=== PATIENT | male | born 1975 | race Caucasian/White ===

== ENCOUNTER 2019-10-16 16:18 | Emergency (ER) | payer MEDICAID, OTHER ==
[2019-10-16 16:26] VITALS: BP 131/76
--- NOTE | 2019-10-16 16:50 | ED Physician Documentation ---
History of Present Illness - Stated complaint Stated Complaint: M - Chief complaint Chief Complaint: Abd Pain - History obtained from History obtained from: Patient - History of Present Illness Timing: How many weeks ago (Several weeks) Pain level max: 6 Pain level now: 3 - Additonal information Additional information: 43-year-old male presents to the emergency department with left inguinal swelling for the past several weeks. States it is gradually become larger. It is intermittently painful. No vomiting. No constipation. No abdominal pain. Better with lying down, worse with standing. Review of Systems Constitutional: denies: Fever, Chills Nose: denies: Rhinorrhea / runny nose, Congestion Respiratory: denies: Cough GI: denies: Nausea, Vomiting, Diarrhea Skin: denies: Rash Musculoskeletal: denies: Neck pain, Extremity pain Neurologic: denies: Headache PD PAST MEDICAL HISTORY - Past Medical History Past Medical History: No - Past Surgical History Past Surgical History: Yes - Present Medications Home Medications: Ambulatory Orders Medication Instructions Recorded Confirmed Ibuprofen [Motrin] 800 mg PO Q8H PRN #30 tablet 10/16/19 - Allergies Allergies/Adverse Reactions: Allergies Allergy/AdvReac Type Severity Reaction Status Date / Time No Known Drug Allergies Allergy Verified 10/16/19 16:26 - Social History Does the pt smoke?: Yes Smoking Status: Current every day smoker Does the pt drink ETOH?: Yes Does the pt have substance abuse?: No - Immunizations Immunizations are current?: Yes - POLST Patient has POLST: No PD ED PE NORMAL - Vitals Vital signs reviewed: Yes - General General: Alert and oriented X 3, No acute distress, Well developed/nourished - HEENT HEENT: PERRL, Moist mucous membranes - Neck Neck: Supple, no meningeal sign - Cardiac Cardiac: RRR - Respiratory Respiratory: No respiratory distress, Clear bilaterally - Abdomen Abdomen: Soft, Non tender, Non distended - Male Male : Other (Left-sided inguinal hernia, easily reducible.) - Derm Derm: Warm and dry - Neuro Neuro: Alert and oriented X 3 - Psych Psych: Normal mood, Normal affect Results - Vitals Vitals: Vital Signs - 24 hr 10/16/19 16:22 Temperature 36.7 C Heart Rate 78 Respiratory 18 Rate Blood Pressure 131/76 H O2 Saturation 95 Oxygen O2 Source Room air PD MEDICAL DECISION MAKING - ED course Complexity details: considered differential, d/w patient ED course: Patient with a left inguinal hernia. Easily reducible. Not incarcerated. We will have him follow-up with general surgery for further care. Patient counseled regarding signs and symptoms for which I believe and urgent re- evaluation would be necessary. Patient with good understanding of and agreement to plan and is comfortable going home at this time This document was made in part using voice recognition software. While efforts are made to proofread this document, sound alike and grammatical errors may occur. Departure - Departure Disposition: 01 Home, Self Care Clinical Impression: Left inguinal hernia Condition: Good Instructions: ED Hernia Inguinal Follow-Up: Oumar Doll MD [Provider Admit Priv/Credential] - Prescriptions: Ibuprofen [Motrin] 800 mg PO Q8H PRN #30 tablet PRN Reason: PAIN &/OR FEVER Comments: you can try a hernia truss underwear and this may help your pain as well. Follow-up with general surgery for repair. Return if you worsen.
== END 2019-10-16 17:01 | disposition home or self-care (01) ==
LOC: ED 16:18
DX: K40.90 Unilateral inguinal hernia, without obstruction or gangrene, not specified as recurrent (principal); F17.200 Nicotine dependence, unspecified, uncomplicated
CPT/HCPCS: 99282; 99284

== ENCOUNTER 2019-11-08 00:48 | Day surgery (SDC) | payer MEDICAID ==
--- NOTE | 2019-11-08 00:50 | ED Physician Documentation ---
PD HPI MALE - Stated complaint Stated Complaint: MALE /PX - History obtained from History obtained from: Patient (Patient is a 43-year-old male who is otherwise healthy presents with left inguinal pain he was diagnosed recently with a left inguinal hernia he does have follow-up with general surgery however due to the pandemic he is been unable to schedule an elective surgery for his hernia repaired this morning he woke up and has been unable to reduce his hernia he has had progressively worsening pain and now with nausea last bowel movement was yesterday is able to urinate denies any history of previous abdominal or pelvic surgeries.Last meal was approximately 6 PM yesterday. Patient denies taking any chronic medications.) PD PAST MEDICAL HISTORY - Past Medical History Cardiovascular: None Respiratory: None Neuro: None Endocrine/Autoimmune: None GI: None : None HEENT: None Psych: None Musculoskeletal: None Derm: None - Past Surgical History Past Surgical History: Yes - Present Medications Home Medications: Ambulatory Orders Medication Instructions Recorded Confirmed Ibuprofen [Motrin] 800 mg PO Q8H PRN #30 tablet 10/16/19 Docusate Sodium 100 mg PO BID #60 capsule 11/08/19 Ibuprofen 800 mg PO TID #60 tablet 11/08/19 oxyCODONE [Roxicodone] 5 mg PO Q6H PRN #40 tablet 11/08/19 - Allergies Allergies/Adverse Reactions: Allergies Allergy/AdvReac Type Severity Reaction Status Date / Time No Known Drug Allergies Allergy Verified 11/08/19 00:59 - Social History Does the pt smoke?: Yes Smoking Status: Current every day smoker Does the pt drink ETOH?: Yes Does the pt have substance abuse?: No - Immunizations Immunizations are current?: Yes - POLST Patient has POLST: No PD ED PE NORMAL - Vitals Vital signs reviewed: Yes - General General: Alert and oriented X 3, No acute distress, Well developed/nourished - HEENT HEENT: Atraumatic, PERRL, Moist mucous membranes - Neck Neck: Supple, no meningeal sign, No JVD - Cardiac Cardiac: RRR, No murmur, Strong equal pulses - Respiratory Respiratory: No respiratory distress, Clear bilaterally - Abdomen Abdomen: Normal bowel sounds, Soft, Non tender, Non distended, No organomegaly - Male Male : Other (Mass in the left femoral/inguinal region, its diffusely tender to palpation unable to reduce on direct manipulation. Patient was placed in Trendelenburg position to attempt to reduce still unsuccessful with reduction testicles are descended bilaterally there is no masses in the testicles no blood at the urethral meatus.) - Back Back: No CVA TTP, No spinal TTP - Derm Derm: Normal color, Warm and dry - Extremities Extremities: No deformity, No calf tenderness / cord - Neuro Neuro: Alert and oriented X 3, regional service manager 2-12 intact, No motor deficit, No sensory deficit, Normal speech - Psych Psych: Normal mood, Normal affect Results - Vitals Vitals: Vital Signs - 24 hr 11/08/19 11/08/19 11/08/19 00:50 02:14 02:50 Temperature 36.6 C Heart Rate 76 68 58 L Respiratory 20 16 18 Rate Blood Pressure 142/78 H 139/81 H 139/81 H O2 Saturation 97 96 98 11/08/19 11/08/19 11/08/19 03:18 06:38 07:47 Temperature 36.4 C L Heart Rate 70 60 56 L Respiratory 16 18 18 Rate Blood Pressure 137/81 H 151/95 H 127/73 O2 Saturation 98 97 97 11/08/19 11/08/19 11/08/19 09:00 09:52 11:00 Temperature Heart Rate 47 L 49 L 62 Respiratory 18 18 18 Rate Blood Pressure 129/82 H 129/82 H 111/71 O2 Saturation 97 96 96 11/08/19 11/08/19 11/08/19 12:00 14:09 16:15 Temperature 36 C L Heart Rate 54 L 82 64 Respiratory 18 16 16 Rate Blood Pressure 153/100 H 128/91 H 112/64 O2 Saturation 97 98 100 11/08/19 11/08/19 11/08/19 16:20 16:25 16:30 Temperature 36.4 C L 36.4 C L 36.5 C Heart Rate 67 66 63 Respiratory 18 18 15 Rate Blood Pressure 105/63 118/74 109/64 O2 Saturation 100 100 99 11/08/19 11/08/19 11/08/19 16:35 16:40 16:45 Temperature 36.7 C 36.4 C L 36.5 C Heart Rate 76 64 61 Respiratory 20 16 15 Rate Blood Pressure 119/76 115/64 116/71 O2 Saturation 97 98 97 11/08/19 11/08/19 11/08/19 17:00 17:32 17:52 Temperature 36.2 C L 36.2 C L 36.0 C L Heart Rate 65 59 L 64 Respiratory 17 16 16 Rate Blood Pressure 118/76 122/68 132/73 H O2 Saturation 98 99 98 Oxygen O2 Source Room air - Labs Labs: Laboratory Tests 11/08/19 11/08/19 11/08/19 01:16 01:16 01:16 WBC 8.1 RBC 4.89 Hgb 15.6 Hct 44.6 MCV 91.2 MCH 31.9 H MCHC 35.0 RDW 12.8 Plt Count 290 MPV 11.0 Neut # (Auto) 4.7 Lymph # (Auto) 2.3 [place] # (Auto) 0.8 Eos # (Auto) 0.3 Baso # (Auto) 0.0 Absolute Nucleated RBC 0.00 Nucleated RBC % 0.0 PT 10.8 INR 0.9 APTT 28.3 Sodium 137 Potassium 3.6 Chloride 101 Carbon Dioxide 26 Anion Gap 10.0 BUN 13 Creatinine 0.8 Estimated GFR (MDRD) 105 Glucose 100 Lactic Acid Calcium 8.8 Total Bilirubin 0.3 AST 19 ALT 26 Alkaline Phosphatase 55 Total Creatine Kinase 109 Total Protein 7.0 Albumin 4.3 Globulin 2.7 Albumin/Globulin Ratio 1.6 Lipase 31 Urine Color Urine Clarity Urine pH Ur Specific [place] Urine Protein Urine Glucose (UA) Urine Ketones Urine Occult Blood Urine Nitrite Urine Bilirubin Urine Urobilinogen Ur Leukocyte Esterase Ur Microscopic Review Urine Culture Comments 11/08/19 11/08/19 01:16 05:38 WBC RBC Hgb Hct MCV MCH MCHC RDW Plt Count MPV Neut # (Auto) Lymph # (Auto) [place] # (Auto) Eos # (Auto) Baso # (Auto) Absolute Nucleated RBC Nucleated RBC % PT INR APTT Sodium Potassium Chloride Carbon Dioxide Anion Gap BUN Creatinine Estimated GFR (MDRD) Glucose Lactic Acid 1.2 Calcium Total Bilirubin AST ALT Alkaline Phosphatase Total Creatine Kinase Total Protein Albumin Globulin Albumin/Globulin Ratio Lipase Urine Color YELLOW Urine Clarity CLEAR Urine pH 6.0 Ur Specific [place] 1.010 Urine Protein NEGATIVE Urine Glucose (UA) NEGATIVE Urine Ketones NEGATIVE Urine Occult Blood NEGATIVE Urine Nitrite NEGATIVE Urine Bilirubin NEGATIVE Urine Urobilinogen 0.2 (NORMAL) Ur Leukocyte Esterase NEGATIVE Ur Microscopic Review NOT INDICATED Urine Culture Comments NOT INDICATED PD MEDICAL DECISION MAKING - ED course Complexity details: re-evaluated patient (Made multiple attempts to reduce the h ernia including gentle pressure, ice, Trendelenburg ultrasound and CT scan showed an incarcerated hernia, lactate is normal no white count he is afebrile no signs of strangulation.At this point will consult general surgery for surgical intervention.), considered differential (Left-sided hernia most likely a indirect inguinal hernia unable to reduce at this point concern would be for incarceration no signs of strangulation currently. Ultrasound will be ordered as well as IV access will send screening labs continue the patient in Trendelenburg position and observe. ), d/w patient - Consults Consults: Consulted (name) (Dr. Long. ), Discussed case with (dr. Long, general surgeon), Request admissions consultant evaluate patient (04:37 case d/w surgeon. will evaluate for surgical correction.) Departure - Departure Disposition: ED Transfer to [facility] Clinical Impression: Incarcerated left inguinal hernia Condition: Stable Discharge Date/Time: 11/08/19 14:10
[2019-11-08] MEDS ORDERED: HYDROmorphone 1 MG/ML SYRINGE IVP STA ×3 (01:02→06:38)
[2019-11-08] MEDS ORDERED: ONDANSETRON 4 MG/2 ML VIAL IVP STA (01:02)
[2019-11-08] MEDS ORDERED: SODIUM CHLORIDE 0.9% 1,000 ML IV ONE (01:02)
[2019-11-08 01:19] LABS: BASOPHILS % (AUTO) 0.4 %; EOSINOPHILS # (AUTO) 0.3 10^3/uL (0.0-0.7); EOSINOPHILS % (AUTO) 4.1 %; HGB - HEMOGLOBIN 15.6 g/dL (14.0-18.0); LYMPHOCYTES # (AUTO) 2.3 10^3/uL (1.5-3.5); LYMPHOCYTES % (AUTO) 27.9 %; MEAN CORPUSCULAR HEMOGLOBIN 31.9 pg (27.0-31.0); MEAN CORPUSCULAR VOLUME 91.2 fL (80.0-94.0); MONOCYTES # (AUTO) 0.8 10^3/uL (0.0-1.0); MONOCYTES % (AUTO) 10.1 %; NEUTROPHILS # (AUTO) 4.7 10^3/uL (1.5-6.6); NEUTROPHILS % (AUTO) 57.3 %; PLT - PLATELET COUNT 290 10^3/uL (130-450); RED BLOOD COUNT 4.89 10^6/uL (4.70-6.10); RED CELL DISTRIBUTION WIDTH 12.8 % (12.0-15.0); WHITE BLOOD COUNT 8.1 x10^3/uL (4.8-10.8)
[2019-11-08 01:24] LABS: INR 0.9 (0.8-1.2); PT - PROTHROMBIN TIME 10.8 secs (9.9-12.6)
[2019-11-08 01:31] LABS: ALBUMIN 4.3 g/dL (3.2-5.5); ALBUMIN/GLOBULIN RATIO 1.6 (1.0-2.2); BILIRUBIN,TOTAL 0.3 mg/dL (0.2-1.0); CALCIUM 8.8 mg/dL (8.5-10.3); CREATININE 0.8 mg/dL (0.6-1.2); PARTIAL THROMBOPLASTIN TIME 28.3 secs (24.9-33.3)
[2019-11-08] MEDS ORDERED: diazePAM INJ 5 MG/ML SYRINGE IVP STA ×2 (01:59→02:55)
--- NOTE | 2019-11-08 03:21 | Ultrasound Report ---
Reason: left inguinal hernia Procedure Date: 11/08/2019 Accession Number: [id number] / [id number] Procedure: US - Pelvic Limited or F/U CPT Code: Final Report FULL RESULT: EXAM: INGUINAL ULTRASOUND EXAM DATE: 11/08/2019 02:43 AM. CLINICAL HISTORY: Left inguinal hernia. COMPARISON: None. TECHNIQUE: Real-time sonographic imaging of the inguinal canals and vascular structures, including color-flow, was performed by the termite inspector. Multiple signs sales representative static images were saved for review. FINDINGS: Hernia: Left inguinal hernia, containing bowel. The hernia is not reducible. The hernia neck measures approximately 16 mm. Localized tenderness is noted. Soft Tissues: Normal. No fluid collections or adenopathy. Other: None. IMPRESSION: Nonreducible bowel-containing left inguinal hernia, with localized tenderness. RADIA
[2019-11-08] MEDS ORDERED: IOVERSOL 320 100 ML VIAL IVP ONE ×2 (03:39→03:58)
--- NOTE | 2019-11-08 04:28 | CT Report ---
Reason: left inguinal hernia Procedure Date: 11/08/2019 Accession Number: [id number] / [id number] Procedure: CT - Abdomen/Pelvis W CPT Code: Final Report FULL RESULT: EXAM: CT ABDOMEN AND PELVIS EXAM DATE: 11/08/2019 04:01 AM. CLINICAL HISTORY: Increased abdominal pain. History of left inguinal hernia. COMPARISONS: ABDOMEN/PELVIS W/ 10/27/2013 1:33 PM. TECHNIQUE: Routine helical CT imaging was performed through the abdomen and pelvis. IV contrast: OPTIRAY 320. Enteric contrast: No. Reconstructions: Coronal and sagittal. In accordance with CT protocol optimization, one or more of the following dose reduction techniques were utilized for this exam: automated exposure control, adjustment of mA and/or KV based on patient size, or use of iterative reconstructive technique. FINDINGS: Motion artifact degrades the exam. The lung bases are clear. Visible heart is normal in size. The liver enhances homogeneously. No focal masses seen. The gallbladder is normal. There is no biliary dilatation. The spleen, pancreas, and adrenal glands are within normal limits. The kidneys enhance symmetrically. There is no hydronephrosis or renal mass. A portion of the sigmoid colon is seen extending into a left inguinal hernia. There is no surrounding fat stranding or free fluid. Extensive diverticulosis is seen in the sigmoid colon. Retained stool is seen in the proximal colon. There is no evidence of bowel obstruction. No free intraperitoneal air or ascites is seen. There is no lymphadenopathy. The abdominal aorta is normal in caliber. Minimal atherosclerotic plaque calcifications are seen. The bladder is distended and normal in appearance. The prostate gland is normal. There is no free pelvic fluid. There is new grade 1 retrolisthesis at L1 and L2 with degenerative disk disease at L1-L2. No suspicious lytic or blastic lesions are seen. IMPRESSION: 1. Incarcerated left inguinal hernia containing a portion of the sigmoid colon without evidence of inflammation or ischemia. 2. Diverticulosis. RADIA
[2019-11-08 05:45] LABS: BILIRUBIN,URINE NEGATIVE (NEGATIVE); CLARITY,URINE CLEAR (CLEAR); GLUCOSE, URINE (UA) NEGATIVE (NEGATIVE); KETONES,URINE (UA) NEGATIVE (NEGATIVE); LEUKOCYTE ESTERASE, URINE NEGATIVE (NEGATIVE); NITRITE,URINE NEGATIVE (NEGATIVE); OCCULT BLOOD,URINE NEGATIVE (NEGATIVE); PROTEIN,URINE NEGATIVE (NEGATIVE); UROBILINOGEN,URINE 0.2 (NORMAL) E.U./dL (NORMAL)
[2019-11-08] MEDS ORDERED: fentaNYL 100 MCG/2 ML VIAL IVP ONE (08:05)
[2019-11-08] MEDS ORDERED: LIDOCAINE-MPF 2% 5 ML VIAL IM ONE (08:05)
[2019-11-08] MEDS ORDERED: MIDAZOLAM 2 MG/2 ML VIAL IVP ONE (08:05)
[2019-11-08] MEDS ORDERED: KETOROLAC 30 MG/ML VIAL IVP ONE (08:05)
[2019-11-08] MEDS ORDERED: PROPOFOL 200 MG/20 ML VIAL IVP ONE (08:05)
[2019-11-08] MEDS ORDERED: ONDANSETRON 4 MG/2 ML VIAL IVP ONE (08:05)
[2019-11-08] MEDS ORDERED: DEXAMETHASONE 10 MG/ML VIAL IVP ONE (08:05)
--- NOTE | 2019-11-08 08:16 | ED Physician Documentation ---
ED Addendum - Addendum Addendum: 11/08/19 08:15 The patient has been comfortable after change of shift. Apparently the hernia reduced prior to surgery arriving. However it still quite tender. He is having intestinal pain. It comes back out with any change in position. Given the incarceration of it for prolonged time, the Dr. robison are felt it prudent to repair it as the likelihood of recurrence is pretty high.
--- NOTE | 2019-11-08 08:26 | CONSULTATION NOTE ---
Referring Provider Name of Referring Provider:: ED Sallie Consult Date: 11/08/19 Chief Complaint - Chief Complaint Chief Complaint: hard and painful hernia History of Present Illness - History of Present Illness HPI Comment/Other: Pleasant 43yo M with a nearly one day history of an incarcerated left inguinal hernia. He has noticed the hernia enlarging for a few weeks and has an appoint ment with surgery tomorrow but yesterday AM it enlarged and got stuck then became hard and painful. After the day of it not reducing he came to the ED. The ED doctor was also unable to reduce it. Imaging shows a sliding left inguinal hernia. No signs of strangulation on exam, imaging, labs, or vital signs. Pt is otherwise in good health with no medical history and only an orthopedic surgery. No meds, no allergies. He is physically active. He has also thoroughly researched hernias and the repair and after care and has also spoken to friends and family members who have had a repair. History - Past Medical History Cardiovascular: reports: None Respiratory: reports: None Neuro: reports: None Endocrine/Autoimmune: reports: None GI: reports: None : reports: None HEENT: reports: None Psych: reports: None Musculoskeletal: reports: None Derm: reports: None MRSA Hx?: No - POLST Patient has POLST: No Meds/Allgy - Home Medications Home Medications: Ambulatory Orders Medication Instructions Recorded Confirmed Ibuprofen [Motrin] 800 mg PO Q8H PRN #30 tablet 10/16/19 - Allergies Allergies/Adverse Reactions: Allergies Allergy/AdvReac Type Severity Reaction Status Date / Time No Known Drug Allergies Allergy Verified 11/08/19 00:59 Review of Systems - Gastrointestinal Gastrointestinal: reports: Other (bowel involved in derrek) - Musculoskeletal Musculoskeletal: reports: Other (left inguinal hernia) - All Other Systems All Other Systems: reports: Reviewed and negative Exam - Vital Signs Reviewed Vital Signs: Yes Vital Signs: Vital Signs x48h Temp Pulse Resp BP Pulse Ox 11/08/19 07:47 36.4 C L 56 L 18 127/73 97 11/08/19 06:38 60 18 151/95 H 97 11/08/19 03:18 70 16 137/81 H 98 11/08/19 02:50 58 L 18 139/81 H 98 11/08/19 02:14 68 16 139/81 H 96 11/08/19 00:50 36.6 C 76 20 142/78 H 97 - Physical Exam Comments/Other: AAO, NAD, overweight male EOMI, MMM, no scleral icterus unlabored RA soft, nt/nd left inguinal area tender, hernia spontaneously reduced while pt rested in ED MAEW left upper thigh skin with small cut, no infection (from recent work injury) Conclusion and Plan - Lab Results Laboratory Results 11/08/19 05:38: Urine Color YELLOW, Urine Clarity CLEAR, Urine pH 6.0, Ur Specific [place] 1.010, Urine Protein NEGATIVE, Urine Glucose (UA) NEGATIVE, Urine Ketones NEGATIVE, Urine Occult Blood NEGATIVE, Urine Nitrite NEGATIVE, Urine Bilirubin NEGATIVE, Urine Urobilinogen 0.2 (NORMAL), Ur Leukocyte Esterase NEGATIVE, Ur Microscopic Review NOT INDICATED, Urine Culture Comments NOT INDICATED 11/08/19 01:16: Lactic Acid 1.2 11/08/19 01:16: Sodium 137, Potassium 3.6, Chloride 101, Carbon Dioxide 26, Anion Gap 10.0, BUN 13, Creatinine 0.8, Estimated GFR (MDRD) 105, Glucose 100, Calcium 8.8, Total Bilirubin 0.3, AST 19, ALT 26, Alkaline Phosphatase 55, Total Creatine Kinase 109, Total Protein 7.0, Albumin 4.3, Globulin 2.7, Albumin/Globulin Ratio 1.6, Lipase 31 11/08/19 01:16: PT 10.8, INR 0.9, APTT 28.3 11/08/19 01:16: WBC 8.1, RBC 4.89, Hgb 15.6, Hct 44.6, MCV 91.2, MCH 31.9 H, MCHC 35.0, RDW 12.8, Plt Count 290, MPV 11.0, Neut # (Auto) 4.7, Lymph # (Auto) 2.3, [place] # (Auto) 0.8, Eos # (Auto) 0.3, Baso # (Auto) 0.0, Absolute Nucleated RBC 0.00, Nucleated RBC % 0.0 - Diagnostic Imaging Results Diagnostic Imaging Results: positive: Final report reviewed, Read contemporaneously - Diagnosis Diagnosis: incarcerated left inguinal hernia - Plan Plan: - did spontaneously reduce while sleeping in ED but was incarcerated involving colon for nearly 24 hrs --> high risk of repeat incarceration and given COVID issues it will be difficult to rely on a close follow up outpatient surgery --> we thoroughly discussed all risks, benefits, and alternatives and pt wishes to proceed, also reviewed post op care and precautions; he has done great independent research already - NPO for surgery, MIVFs, prn pain meds
[2019-11-08] MEDS ORDERED: ceFAZolin 2 GM in SODIUM CHLORIDE 0.9% 100ML 100 ML IV ONE (09:56)
--- NOTE | 2019-11-08 11:22 | ANESTHESIA ---
Pre-Anesthesia VS, & Labs - Diagnosis Diagnosis incarcerated left inguinal hernia - Procedure left inguinal hernia repair Vital Signs: Temp Pulse Resp BP Pulse Ox 36.4 C L 49 L 18 129/82 H 96 11/08/19 07:47 11/08/19 09:52 11/08/19 09:52 11/08/19 09:52 11/08/19 09:52 Height 6 ft Weight (kg) 95.254 kg Body Mass Index 28.5 - NPO >8 hours - Lab Results Current Lab Results: Laboratory Tests 11/08/19 01:16: Lactic Acid 1.2 11/08/19 01:16: Sodium 137, Potassium 3.6, Chloride 101, Carbon Dioxide 26, Anion Gap 10.0, BUN 13, Creatinine 0.8, Estimated GFR (MDRD) 105, Glucose 100, Calcium 8.8, Total Bilirubin 0.3, AST 19, ALT 26, Alkaline Phosphatase 55, Total Creatine Kinase 109, Total Protein 7.0, Albumin 4.3, Globulin 2.7, Albumin/Globulin Ratio 1.6, Lipase 31 11/08/19 01:16: PT 10.8, INR 0.9, APTT 28.3 11/08/19 01:16: WBC 8.1, RBC 4.89, Hgb 15.6, Hct 44.6, MCV 91.2, MCH 31.9 H, MCHC 35.0, RDW 12.8, Plt Count 290, MPV 11.0, Neut # (Auto) 4.7, Lymph # (Auto) 2.3, [place] # (Auto) 0.8, Eos # (Auto) 0.3, Baso # (Auto) 0.0, Absolute Nucleated RBC 0.00, Nucleated RBC % 0.0 Fish Bones: 11/08/19 01:16 11/08/19 01:16 Home Medications and Allergies Allergies/Adverse Reactions: Allergies Allergy/AdvReac Type Severity Reaction Status Date / Time No Known Drug Allergies Allergy Verified 11/08/19 00:59 Anes History & Medical History - Anesthetic History Anesthesia Complications: reports: No previous complications Family history of Anesthesia Complications: Denies Family history of Malignant Hyperthermia: Denies - Medical History Cardiovascular: reports: None Pulmonary: reports: None Gastrointestinal: reports: None Urinary: reports: None Neuro: reports: None Musculoskeletal: reports: None Endocrine/Autoimmune: reports: None Blood Disorders: reports: None Skin: reports: None Smoking Status: Current every day smoker - Surgical History Orthopedic: Other (LLE hardware in situ from multiple ortho procedures stemming from construction site trauma (driven over by heavy equipment)) Exam General: Alert, Oriented x3, Cooperative Dental: WNL Mouth Opening: Greater than 4 Fingerbreadths Neck Mobility: Normal Mallampati classification: I Thyromental Distance: 4-6 cm Respiratory: Lungs clear Cardiovascular: Regular rate Mental/Cognitive Status: Alert/Oriented X3 Cognitive Status: Within normal limits Plan Anesthesia Type: General Consent for Procedure(s) Verified and Reviewed: Yes Code Status: Attempt Resuscitation ASA classification: 2-Mild systemic disease Is this case an emergency?: Yes
[2019-11-08] MEDS ORDERED: HYDROmorphone 1 MG/ML CARPUJECT IVP STA (11:29)
[2019-11-08] MEDS ORDERED: LACTATED RINGERS 1,000 ML IV STA (11:29)
[2019-11-08] MEDS ORDERED: LIDOCAINE 1%-EPI 1:100000 20 ML MDV ONE (14:19)
[2019-11-08] MEDS ORDERED: BUPIVACAINE 0.5% PF 30 ML VIAL ONE (14:19)
[2019-11-08] MEDS ORDERED: LIDOCAINE 1%-EPI 1:100000 30 ML MDV SUBQ ONE (14:39)
[2019-11-08] MEDS ORDERED: BUPIVACAINE 0.5% PF 30 ML VIAL INFIL ONE (14:39)
[2019-11-08] MEDS ORDERED: LACTATED RINGERS 1,000 ML IV ONE ×2 (14:40→16:43)
--- NOTE | 2019-11-08 16:08 | OPERATIVE REPORT ---
Operative Report - General Procedure Date: 11/08/19 Pre-Op Diagnosis: Incarcerated Left Inguinal Hernia Procedure Performed: Left Inguinal Hernia Repair Post Op Diagnosis: same - Procedure Note Primary Surgeon: Teri Long MD Anesthesia Provider: Yuval Sawant CRNA Anesthesia Technique: General LMA Pathology: 1. nerve 2. cord lipoma 3. hernia sac Estimated Blood Loss (mL): 5 Indications: 43yo M with a worsening left inguinal hernia that became incarcerated yesterday morning and failed to reduce all day. It was quite painful so he came in for evaluation. ED doctor was also unable to reduce this. No indications of strangulation. It did spontaneously reduce when pt rested this morning before surgery. We reviewed all risks, benefits, and alternatives and pt wishes to proceed. Findings: indirect inguinal hernia Complications: none - Other Other Information/Narrative: Patient was taken to the operating room and placed on the operating table in supine position. The left groin was prepped and draped in the usual sterile fashion and a timeout performed with the team present. The pubic symphysis and anterior superior iliac spine were then marked. Local anesthesia was used to infiltrate the line of planned incision as well as the area of the ilioinguinal nerve. A 10 blade scalpel was used to make a 6 cm long incision along the length of the inguinal ligament. Electrocautery was used to go down to the level of the external oblique. A 15 blade scalpel used to make a small incision in the aponeurosis and then Metzenbaum scissors used to open up the external oblique aponeurosis widely. The ilioinguinal nerve was identified and carefully excised so it was entirely removed from the field. The posterior aspect of the external oblique aponeurosis was cleaned superiorly and inferiorly. The shelving edge of the inguinal ligament was identified. The spermatic cord and its surrounding tissues were identified and encircled with a lilian drain. Attachments to cremaster were muscle were taken down using electrocautery and blunt dissection. An indirect hernia sac was identified. This was dissected away from the spermatic cord contents to the level of the peritoneum. The hernia sac was then opened noting no abdominal contents within the sac; a small volume of fluid likely from inflammation from his incarceration, was noted. Using 2-0 silk suture the hernia sac was ligated in a high fashion. This was then transected and passed off the field. A medium-sized cord lipoma was also identified and ligated near its base with 2-0 silk suture as well. There was some weakness in the floor of the inguinal canal, but no significant direct hernia component was identified. The area was irrigated and dried. Using a mesh cut to size, the floor of the inguinal canal was recreated. The mesh was sewn into place with 0-Ethibond in an interrupted fashion starting at the pubic tubercle. The internal ring was then recreated by sewing the flaps of the keyhole mesh together. A finger was noted to easily pass through the ring along with the spermatic cord contents. The was irrigated again. Hemostasis was obtained using electrocautery. The mesh was noted to lie without redundancy or tension in satisfactory position.The external oblique aponeurosis was then reapproximated using 3-0 vicryl in a running fashion. This also recreated the external ring. The scrotum was palpated and the testicle and spermatic cord were pulled back into their usual anatomic position. Severino's fascia was reapproximated using 2-0 vicryl in a running fashion. The skin was reapproximated using 4-0 monocryl in a running subcuticular fashion. The remainder of the local anesthesia was used over the incision site and at the level of the ilioinguinal nerve. The area was cleaned and dried. Dermabond was placed over the incision. All counts were correct at the end of the procedure. The patient was awakened and taken to the PACU in stable condition.
[2019-11-08] MEDS ORDERED: ONDANSETRON 4 MG/2 ML VIAL IVP PRN (16:11)
[2019-11-08] MEDS ORDERED: HYDROmorphone 0.5 MG/0.5 ML SYRINGE IVP PRN (16:11)
[2019-11-08] MEDS ORDERED: oxyCODONE 5 MG TABLET PO PRN (16:11)
[2019-11-08] MEDS ORDERED: oxyCODONE 5 MG TABLET ONE (16:57)
[2019-11-08 17:57] VITALS: BP 132/73
== END 2019-11-08 18:30 | disposition home or self-care (01) ==
LOC: ED 00:48 → SDS 08:04 → MS2 17:48 → SDS 18:30
PROVIDERS: ATTEND Surgery
PROC: 0VBG0ZZ Excision of Left Spermatic Cord, Open Approach (ICD-10-PCS; 2019-11-08)
PROC: 0YU60JZ Supplement Left Inguinal Region with Synthetic Substitute, Open Approach (ICD-10-PCS; principal; 2019-11-08 13:00)
DX: K40.30 Unilateral inguinal hernia, with obstruction, without gangrene, not specified as recurrent (principal); D17.6 Benign lipomatous neoplasm of spermatic cord; F17.200 Nicotine dependence, unspecified, uncomplicated
CPT/HCPCS: 36415; 49507; 74177; 76857; 80053; 81003; 82550; 83605; 83690; 85025; 85610; 85730; 96374; 96375; 96376; 99281; 99285; A9270; C1781; J1170; J7120; Q9967; 81001; 87086

== ENCOUNTER 2020-08-23 22:37 | Outpatient (CLI) | payer OTHER | END 2020-08-23 22:38 | disposition home or self-care (01) | LOC: LAB 22:37 | PROVIDERS: ATTEND Pathology Blood Banking & Transfusion Medicine | DX: Z01.89 Encounter for other specified special examinations (principal) | CPT/HCPCS: 36415 ==

== ENCOUNTER 2021-12-10 19:59 | Outpatient (CLI) | payer MEDICAID | END 2021-12-10 20:00 | disposition critical access hospital (66) | LOC: EMS 19:59 | DX: R07.9 Chest pain, unspecified (principal) | CPT/HCPCS: A0425; A0427; A0999 ==

== ENCOUNTER 2021-12-10 20:17 | Emergency (ER) | payer MEDICAID ==
--- NOTE | 2021-12-10 20:27 | ED Physician Documentation ---
History of Present Illness - Stated complaint Stated Complaint: CHEST PX - Chief complaint Chief Complaint: Cardiac - Additonal information Additional information: 46-year-old male presents emergency department via EMS for evaluation of subs ternal chest pressure. Symptoms began about 90 minutes ago. Nonradiating. Initially described as 10 of 10 by patient and he was short of air. He did take 325 of aspirin at home and summoned EMS. For EMS his twelve-lead showed sinus rhythm without STEMI. He was given a dose of nitroglycerin with some relief of symptoms. On arrival to the emergency department the patient is awake alert well-appearing. He is denying chest pain or chest pressure right now. Denies any history of hypertension or diabetes. He is an active daily tobacco user. Does not know his family history as he was adopted. Patient underwent a right inguinal hernia repair about 2 weeks ago at [facility]. He denies any unilateral leg swelling or calf pain. Review of Systems Constitutional: denies: Fever, Chills Eyes: reports: Reviewed and negative Throat: reports: Reviewed and negative Cardiac: reports: Chest pain / pressure. denies: Palpitations, Pedal edema, Calf pain Respiratory: denies: Dyspnea, Cough GI: denies: Abdominal Pain, Nausea, Vomiting : reports: Reviewed and negative Skin: reports: Reviewed and negative PD PAST MEDICAL HISTORY - Past Medical History Cardiovascular: None Respiratory: None Neuro: None Endocrine/Autoimmune: None GI: None : None HEENT: None Psych: None Musculoskeletal: None Derm: None - Past Surgical History Past Surgical History: Yes Ortho: Other (LLE hardware in situ from multiple ortho procedures stemming from construction site trauma (driven over by heavy equipment)) - Present Medications Home Medications: Ambulatory Orders Medication Instructions Recorded Confirmed Ibuprofen [Motrin] 800 mg PO Q8H PRN #30 tablet 10/16/19 Docusate Sodium 100 mg PO BID #60 capsule 11/08/19 Ibuprofen 800 mg PO TID #60 tablet 11/08/19 oxyCODONE [Roxicodone] 5 mg PO Q6H PRN #40 tablet 11/08/19 - Allergies Allergies/Adverse Reactions: Allergies Allergy/AdvReac Type Severity Reaction Status Date / Time No Known Drug Allergies Allergy Verified 12/10/21 20:19 - Social History Does the pt smoke?: Yes Smoking Status: Current every day smoker Does the pt drink ETOH?: Yes Does the pt have substance abuse?: No - Immunizations Immunizations are current?: Yes - POLST Patient has POLST: No PD ED PE NORMAL - General General: Alert and oriented X 3, No acute distress, Well developed/nourished - HEENT HEENT: Atraumatic, Moist mucous membranes, Pharynx benign - Neck Neck: Supple, no meningeal sign - Cardiac Cardiac: RRR, No murmur, No gallop - Respiratory Respiratory: No respiratory distress, Clear bilaterally - Abdomen Abdomen: Normal bowel sounds, Soft, Other (Inguinal incision right lower quadrant of the abdomen intact appears to be healing well. No drainage or surrounding erythema.) - Derm Derm: Normal color, Warm and dry - Extremities Extremities: No deformity, No edema. No: No calf tenderness / cord - Neuro Neuro: Alert and oriented X 3, rigger third 2-12 intact Eye Opening: Spontaneous Motor: Obeys Commands Verbal: Oriented GCS Score: 15 Results - Vitals Vitals: Vital Signs - 24 hr 12/10/21 12/10/21 12/10/21 20:19 20:24 20:54 Temperature 36.5 C 36.5 C Heart Rate 68 68 68 Respiratory 16 16 21 Rate Blood Pressure 137/95 H 137/95 H 125/84 H O2 Saturation 98 98 95 12/10/21 12/10/21 21:24 21:30 Temperature Heart Rate 53 L 56 L Respiratory 12 16 Rate Blood Pressure 124/72 124/72 O2 Saturation 96 98 Oxygen O2 Source Room air - EKG (time done) 2022 Rate: Rate (enter#) (67) Rhythm: NSR [place]: Normal Intervals: Normal NE QRS: Normal Ischemia: Q waves (prominent R waves V1-2 would correlate to q waves V7-9) Compare to prior EKG: Old EKG unavailable Computer interpretation: Agree with computer (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) - Labs Labs: Laboratory Tests 12/10/21 12/10/21 12/10/21 20:28 20:28 20:28 WBC 10.0 RBC 5.39 Hgb 16.9 Hct 49.3 MCV 91.5 MCH 31.4 H MCHC 34.3 RDW 13.0 Plt Count 338 MPV 11.1 Neut # (Auto) 6.4 Lymph # (Auto) 2.4 [place] # (Auto) 0.8 Eos # (Auto) 0.4 Baso # (Auto) 0.0 Absolute Nucleated RBC 0.00 Nucleated RBC % 0.0 D-Dimer 296.9 H Sodium 139 Potassium 4.4 Chloride 103 Carbon Dioxide 23 Anion Gap 13.0 BUN 22 H Creatinine 0.8 Estimated GFR (MDRD) 104 Glucose 116 H Calcium 9.1 Total Bilirubin 0.9 AST 16 ALT 28 Alkaline Phosphatase 64 Troponin I High Sens Total Protein 7.4 Albumin 4.1 Globulin 3.3 Albumin/Globulin Ratio 1.2 Lipase 45 12/10/21 20:28 WBC RBC Hgb Hct MCV MCH MCHC RDW Plt Count MPV Neut # (Auto) Lymph # (Auto) [place] # (Auto) Eos # (Auto) Baso # (Auto) Absolute Nucleated RBC Nucleated RBC % D-Dimer Sodium Potassium Chloride Carbon Dioxide Anion Gap BUN Creatinine Estimated GFR (MDRD) Glucose Calcium Total Bilirubin AST ALT Alkaline Phosphatase Troponin I High Sens 13.0 Total Protein Albumin Globulin Albumin/Globulin Ratio Lipase - Rads (name of study) cxr Radiology: Final report received (no acute cardiopulmonary process) PD MEDICAL DECISION MAKING - ED course Complexity details: reviewed results, re-evaluated patient, considered diff erential, d/w patient ED course: 46-year-old male presents to the emergency department for evaluation of sudden onset chest pain and shortness of air that occurred while he was sitting on the couch watching TV. He initially describes severe pain that made him have difficult time catching his breath. He did take 325 of aspirin and called 911. EMS had a nonischemic EKG and he was given 0.4 mg of nitroglycerin with minimal relief of symptoms. On my initial presentation however he is just denying any chest pain or shortness of air. He does have a history of tobacco and alcohol use but has never been diagnosed with hypertension or diabetes. His initial EKG is nonischemic though there is suggestion of old posterior infarct. Initial troponin was negative. However given that he arrived within 1 hour of chest pain onset a delta trope was obtained and is negative. Patient has a heart score of 2. He is currently establishing with a new primary care provider. I have encouraged him to have close follow-up with this provider in order to discuss longer-term management evaluation of chest pain and modification of risk factors. He may benefit from an echocardiogram or stress test. Unfortunately this gentleman also underwent right inguinal hernia repair under general endotracheal anesthesia at [facility] 2 weeks ago. He has no leg swelling or calf pain. By Wells criteria he was considered to be a lower risk for PE. Therefore a D-dimer was obtained. Unfortunately D-dimer is mildly elevated. Given this we will proceed with CT angiogram of the chest to rule out pulmonary embolism. Patient will be signed out to my nighttime colleague Dr. Yates to follow-up the results of the pulmonary angio of the chest. If it is negative he is stable for discharge home to continue follow-up as above with his primary care provider. Departure - Departure Clinical Impression: Shortness of breath Chest pain Qualifiers: Chest pain type: unspecified Qualified Code(s): R07.9 - Chest pain, unspecified Condition: Stable Record reviewed to determine appropriate education?: Yes Instructions: ED Chest Pain Atypical Unkn Cause, ED Heart Disease Risk Factors Comments: Shane watts are seen today in the emergency department because she developed some chest pain/pressure as well as shortness of air while sitting on the couch at home watching TV. Your screening EKG today does not suggest active myocardial infarction though there are some changes that suggest you may have had a heart attack at some point in the past. Today in the emergency department your troponins were negative. However given your age, your history of tobacco use you may benefit from further evaluation with your primary care doctor for modification of risk factors for heart disease as well as consideration of outpatient echocardiogram and stress testing. Because you reported that you underwent surgery at [facility] two weeks ago and you were short of air there is some risk factors that the chest pain and pressure could have been due to a blood clot in your lungs also known as a pulmonary embolism. We did do a lab test called a D-dimer that was just mildly elevated. Because of this we did a pulmonary angiogram of your chest that does not show any blood clot in your lungs. Is important you continue longer-term follow-up with your primary care provider. If at any point you develop fevers, have sudden severe chest pain shortness of air or any fainting episodes and you should return immediately to the ER for repeat evaluation.
[2021-12-10 20:33] LABS: BASOPHILS % (AUTO) 0.2 %; EOSINOPHILS # (AUTO) 0.4 10^3/uL (0.0-0.7); EOSINOPHILS % (AUTO) 4.2 %; HCT - HEMATOCRIT 49.3 % (42.0-52.0); HGB - HEMOGLOBIN 16.9 g/dL (14.0-18.0); LYMPHOCYTES # (AUTO) 2.4 10^3/uL (1.5-3.5); LYMPHOCYTES % (AUTO) 23.6 %; MEAN CORPUSCULAR HEMOGLOBIN 31.4 pg (27.0-31.0); MEAN CORPUSCULAR HGB CONC 34.3 g/dL (32.0-36.0); MEAN CORPUSCULAR VOLUME 91.5 fL (80.0-94.0); MEAN PLATELET VOLUME 11.1 fL (7.4-11.4); MONOCYTES # (AUTO) 0.8 10^3/uL (0.0-1.0); MONOCYTES % (AUTO) 7.5 %; NEUTROPHILS # (AUTO) 6.4 10^3/uL (1.5-6.6); NEUTROPHILS % (AUTO) 64.2 %; PLT - PLATELET COUNT 338 10^3/uL (130-450); RED BLOOD COUNT 5.39 10^6/uL (4.70-6.10)
[2021-12-10 20:51] LABS: ALBUMIN 4.1 g/dL (3.2-5.5); ALBUMIN/GLOBULIN RATIO 1.2 (1.0-2.2); BILIRUBIN,TOTAL 0.9 mg/dL (0.2-1.0); CALCIUM 9.1 mg/dL (8.5-10.3); CREATININE 0.8 mg/dL (0.6-1.2); POTASSIUM 4.4 mmol/L (3.5-5.0); TOTAL PROTEIN 7.4 g/dL (6.7-8.2)
--- NOTE | 2021-12-10 21:09 | XRAY Report ---
PROCEDURE: Chest 1 View X-Ray INDICATIONS: Chest Pain TECHNIQUE: One view of the chest was acquired. COMPARISON: None. FINDINGS: Surgical changes and devices: None. Lungs and pleura: No pleural effusions or pneumothorax. Lungs are clear. Mediastinum: Mediastinal contours appear normal. Heart size is normal. Bones and chest wall: No suspicious bony lesions. Overlying soft tissues appear unremarkable. IMPRESSION: 1. No acute cardiopulmonary disease. Reviewed by: Filipe Calderon MD on 12/10/2021 9:07 PM PDT Approved by: Filipe Calderon MD on 12/10/2021 9:07 PM PDT Station ID: [id number]
[2021-12-10] MEDS ORDERED: IOPAMIDOL-300 50 ML VIAL ONE (21:36)
[2021-12-10] MEDS ORDERED: IOPAMIDOL-300 100 ML VIAL IVP ONE (21:57)
--- NOTE | 2021-12-10 23:04 | CT Report ---
PROCEDURE: ANGIO CHEST W/WO INDICATIONS: elevated dimer; cp; r/o pe CONTRAST: IV CONTRAST: Isovue 300 ml: 80 PO CONTRAST: *NO PO CONTRAST TECHNIQUE: After the administration of intravenous contrast, 2 mm axial images were acquired from the pulmonary apices to the posterior costophrenic angles during the arterial phase. In addition, 1 mm lung kernel and 5 mm soft tissue kernel reconstructions were performed. 3-dimensional coronal oblique maximum int ensity projection (MIP) reformats, 8 mm axial MIP, and 5 mm coronal and sagittal MPR reformats were t hen performed through the thorax. For radiation dose reduction, the following was used: automated exp osure control, adjustment of mA and/or kV according to patient size. COMPARISON: Chest x-ray 12/10/2021 FINDINGS: Image quality: There is motion artifact limiting evaluation. Pulmonary arteries: Pulmonary arteries are normal in size, and demonstrate no intraluminal filling d efects to suggest central pulmonary embolism. Lungs and pleura: No acute consolidation. There are indistinct bilateral groundglass opacities may re flect mild pulmonary edema. No pleural effusions or pneumothorax. Central and peripheral airways are patent. Mediastinum: Heart size is normal, without pericardial effusion. No mediastinal or hilar adenopathy . Thoracic aorta is normal in caliber and enhancement. Esophagus is normal in caliber, without hiat al hernia. Bones and chest wall: No suspicious bony lesions. Ribs and thoracic spine appear intact throughout. No axillary or supraclavicular adenopathy. The thyroid demonstrates no discrete nodules. Abdomen: Visualized upper abdominal solid organs appear normal in the early arterial phase of enhanc ement. IMPRESSION: 1. No evidence of central pulmonary embolism. 2. No acute airspace consolidation. 3. Mild indistinct groundglass opacities may reflect mild pulmonary edema. Reviewed by: Filipe Calderon MD on 12/10/2021 11:02 PM PDT Approved by: Filipe Calderon MD on 12/10/2021 11:02 PM PDT Station ID: [id number]
--- NOTE | 2021-12-10 23:27 | ED Physician Documentation ---
ED Addendum - Addendum Addendum: 12/10/21 23:26 Patient feeling better. No pain. Reviewed second troponin and results of the CT angio. No signs of pulmonary embolism. Troponin slightly decreased from initial. Patient is low risk for ACS per the heart score. Patient aware of need for follow-up with his PCP and is actually has an appointment to be seen in about 9 to 10 days. I also reviewed return precautions for return of or worsening symptoms. Patient sister is at the bedside and also present for conversation.
[2021-12-10 23:42] VITALS: BP 115/86
== END 2021-12-10 23:43 | disposition home or self-care (01) ==
LOC: ED 20:17
DX: R06.02 Shortness of breath (principal); R07.9 Chest pain, unspecified; R79.1 Abnormal coagulation profile; F17.200 Nicotine dependence, unspecified, uncomplicated
CPT/HCPCS: 36415; 71045; 71275; 80053; 83690; 84484; 85025; 85379; 93005; 99284; Q9967

== ENCOUNTER 2023-08-08 19:28 | Emergency (ER) | payer MEDICAID ==
[2023-08-08] MEDS ORDERED: BUFFERED LIDOCAINE 10 ML SYRINGE SUBQ STA (19:34)
--- NOTE | 2023-08-08 19:38 | ED Physician Documentation ---
PD HPI UPPER EXT INJURY - Stated complaint Stated Complaint: R THUMB INJ - Chief complaint Chief Complaint: Laceration - History obtained from History obtained from: Patient (Right-handed gentleman who is up-to-date on tetanus accidentally cut his right thumb with sheet-metal at home just prior to arrival.) PD PAST MEDICAL HISTORY - Past Medical History Past Medical History: No Cardiovascular: None Respiratory: None Neuro: None Endocrine/Autoimmune: None GI: None : None HEENT: None Psych: None Musculoskeletal: None Derm: None - Past Surgical History Past Surgical History: Yes General: Bowel surgery Ortho: Other - Present Medications Home Medications: Ambulatory Orders Medication Instructions Recorded Confirmed No Known Home Medications 08/08/23 08/08/23 - Allergies Allergies/Adverse Reactions: Allergies Allergy/AdvReac Type Severity Reaction Status Date / Time No Known Drug Allergies Allergy Verified 08/08/23 19:31 - Social History Does the pt smoke?: Yes Smoking Status: Current every day smoker Does the pt drink ETOH?: Yes Does the pt have substance abuse?: No - Immunizations Immunizations are current?: Yes - POLST Patient has POLST: No PD ED PE NORMAL - Vitals Vital signs reviewed: Yes - General General: Alert and oriented X 3, No acute distress - Extremities Extremities: Other (On the proximal part of the left thumb at the junction between the thumb and the hand there is a slightly jagged 1-1/4 cm laceration on the palmar side without distal neurovascular compromise.) - Neuro Neuro: Alert and oriented X 3, Normal speech Results - Vitals Vitals: Vital Signs - 24 hr 08/08/23 19:31 Temperature 36.5 C Heart Rate 56 L Respiratory 116 H Rate Blood Pressure 138/90 H O2 Saturation 98 Oxygen O2 Source Room air Procedures - Laceration (location) R thumb/hand Length in cm: 1.2 Wound type: Linear, Into subcut fat Neurovascular status: Sensory intact, Motor intact, Vascular intact Anesthesia: Lidocaine 1%, With bicarb Wound preparation: Irrigated copiously NS Skin layer closure: Nylon, Interrupted, Size #-0 - enter number (4-0), Sutures - enter # (3) Other: Tetanus UTD Departure - Departure Disposition: 01 Home, Self Care Clinical Impression: Laceration of right hand Qualifiers: Encounter type: initial encounter Foreign body presence: without foreign body Qualified Code(s): S61.411A - Laceration without foreign body of right hand, ini tial encounter Condition: Good Record reviewed to determine appropriate education?: Yes Instructions: ED Laceration Hand Comments: Come back for any signs of infection which would include: Redness, swelling, drainage, increased pain, or fevers. You can wash it soap and water. Keep it covered and moist with bacitracin ointment which is available over the counter; avoid neosporin. Follow-up with your physician in about 14 days for suture removal. Forms: PCP List
[2023-08-08 19:41] VITALS: BP 138/90; O2SAT 98
== END 2023-08-08 19:58 | disposition home or self-care (01) ==
LOC: ED 19:28
DX: S61.411A Laceration without foreign body of right hand, initial encounter (principal); W26.8XXA Contact with other sharp object(s), not elsewhere classified, initial encounter; Y92.009 Unspecified place in unspecified non-institutional (private) residence as the place of occurrence of the external cause; F17.200 Nicotine dependence, unspecified, uncomplicated
CPT/HCPCS: 12001; 99282